=== PATIENT | female | born 1945 | race Caucasian/White ===

== ENCOUNTER → 2017-08-17 | Outpatient (CLI) | payer MEDICARE ==
[~2017-08-17] MED LIST: ASPI81CH PO; CENTRUM SILVER1 EAC3 PO; FISH1000 PO; Fibercon625 MG PO; LISI5 PO; UBID10 PO
[2017-08-19 13:21] LABS: HPV Genotype 16 Not Detected (NOTDET); HPV Genotype 18 Not Detected (NOTDET)
[2017-08-24 13:37] LABS: HPV High Risk Other Not Detected (NOTDET)
== END | disposition home or self-care (01) ==
LOC: LAB SHORT 16:43 → LAB 16:43
PROVIDERS: Obstetrics & Gynecology Gynecology
DX: Z12.72 Encounter for screening for malignant neoplasm of vagina (principal)
CPT/HCPCS: 87624; G0123

== ENCOUNTER 2020-07-16 15:58 | Emergency (ER) | payer MEDICARE ==
[~2020-07-16] VITALS: Ht 172.7 cm; Wt 66.2 kg
[~2020-07-16 15:58] MED LIST changes: -CENTRUM SILVER1 EAC3 PO; +Co Q-10300 MG PO; +ELIQUIS2.5 MG; +ELIQUIS5 M2; +Hair, Skin & N1 EACH PO; -LISI5 PO; +Prinivil10 MG PO; -UBID10 PO
[2020-07-16] MEDS ORDERED: POTCHL20ER PO (16:42)
[2020-07-16] MEDS ORDERED: FURO40 PO (16:42)
[2020-07-16] MEDS ORDERED: METO50 PO (16:43)
[2020-07-16] MEDS ORDERED: GABA100 PO (16:43)
[2020-07-16 16:50] LABS: BASOPHILS ABSOLUTE AUTO 0.04 K/mm3 (0.00-0.23); BASOPHILS PERCENT AUTO 1 % (0-2); EOSINOPHILS PERCENT AUTO 2 % (0-6); Hematocrit 38.3 % (33.0-51.0); Hemoglobin 12.9 g/dL (11.5-16.0); IMMATURE GRAN ABSOLUTE AUTO 0.01 K/mm3 (0.00-0.10); IMMATURE GRAN PERCENT AUTO 0 % (0-1); LYMPHOCYTES ABSOLUTE AUTO 1.74 K/mm3 (0.84-5.20); LYMPHOCYTES PERCENT AUTO 27 % (21-46); MONOCYTES ABSOLUTE AUTO 0.72 K/mm3 (0.16-1.47); MONOCYTES PERCENT AUTO 11 % (4-13); Mean Corpuscular HGB 31.9 pg (26.0-34.0); Mean Corpuscular HGB Conc 33.7 g/dL (31.5-36.5); Mean Corpuscular Volume 95 fL (80-100); Mean Platelet Volume 10.5 fL (9.1-12.4); NEUTROPHILS ABSOLUTE AUTO 3.81 K/mm3 (1.96-9.15); NEUTROPHILS PERCENT AUTO 59 % (41-73); Platelet Count 182 K/mm3 (150-400); RDW Coefficient Variation 13.8 % (11.7-14.2); RDW Standard Deviation 47.8 fL (35.1-46.3); Red Blood Cell Count 4.04 M/mm3 (3.80-5.20); White Blood Cell Count 6.42 K/mm3 (4.00-11.30)
[2020-07-16 17:14] LABS: Alanine Aminotransfer (ALT/SGP 51 U/L (12-78); Albumin, Blood 4.1 g/dL (3.4-5.0); Albumin/Globulin Ratio 1.5 (0.8-1.8); Alk Phos 112 U/L (50-136); Anion Gap 8 mmol/L (6-16); Aspartate Aminotrans (AST/SGOT 54 U/L (12-37); Blood Urea Nitrogen 39 mg/dL (8-24); Bun/Creatinine Ratio 43.9 (12.0-20.0); CO2, Blood 24 mmol/L (21-32); Calcium, Blood 9.2 mg/dL (8.5-10.1); Chloride, Blood 103 mmol/L (98-108); Creatinine, Blood 0.89 mg/dL (0.40-1.00); Globulin, Blood 2.7 g/dL (2.2-4.0); Glomerular Filtration Rate >60 (60-); Glucose, Blood 100 mg/dL (70-99); Potassium, Blood 4.4 mmol/L (3.5-5.5); Sodium, Blood 135 mmol/L (136-145); Total Protein, Blood 6.8 g/dL (6.4-8.2)
[2020-07-16] MEDS ORDERED: DABI150C PO (17:46)
[2020-07-16] MEDS ORDERED: VITAMIN D325 MC3 PO (18:02)
[2020-07-16] MEDS ORDERED: ASCO500 PO (18:02)
[2020-07-16] MEDS ORDERED: PRESERVISION A1 EAC1 PO (18:02)
[2020-07-16] MEDS ORDERED: red yeast rice PO (18:03)
== END 2020-07-16 19:06 | disposition home or self-care (01) ==
LOC: ER 15:58
PROVIDERS: Physician Assistant
DX: I50.9 Heart failure, unspecified (principal); I48.91 Unspecified atrial fibrillation; Z88.6 Allergy status to analgesic agent; Z79.899 Other long term (current) drug therapy; Z79.82 Long term (current) use of aspirin
CPT/HCPCS: 36415; 80053; 83880; 84484; 85025; 93005; 93010; 99285-25

== ENCOUNTER 2022-04-05 07:34 | Emergency (ER) | payer MEDICARE ==
[~2022-04-05] VITALS: Ht 172.7 cm; Wt 61.2 kg
[~2022-04-05 07:34] MED LIST changes: +ASCO500 PO; +DABI150C PO; +FURO40 PO; +GABA100 PO; +METO50 PO; +POTCHL20ER PO; +PRESERVISION A1 EAC1 PO; +VITAMIN D325 MC3 PO; +red yeast rice PO
[2022-04-05 08:22] LABS: BASOPHILS ABSOLUTE AUTO 0.08 K/mm3 (0.00-0.23); BASOPHILS PERCENT AUTO 1 % (0-2); EOSINOPHILS ABSOLUTE AUTO 0.09 K/mm3 (0.00-0.68); EOSINOPHILS PERCENT AUTO 1 % (0-6); Hematocrit 39.3 % (33.0-51.0); Hemoglobin 12.9 g/dL (11.5-16.0); IMMATURE GRAN ABSOLUTE AUTO 0.02 K/mm3 (0.00-0.10); IMMATURE GRAN PERCENT AUTO 0 % (0-1); LYMPHOCYTES ABSOLUTE AUTO 1.08 K/mm3 (0.84-5.20); LYMPHOCYTES PERCENT AUTO 16 % (21-46); MONOCYTES ABSOLUTE AUTO 0.74 K/mm3 (0.16-1.47); MONOCYTES PERCENT AUTO 11 % (4-13); Mean Corpuscular HGB 30.3 pg (26.0-34.0); Mean Corpuscular HGB Conc 32.8 g/dL (31.5-36.5); Mean Corpuscular Volume 92 fL (80-100); Mean Platelet Volume 9.9 fL (9.1-12.4); NEUTROPHILS ABSOLUTE AUTO 4.58 K/mm3 (1.96-9.15); NEUTROPHILS PERCENT AUTO 70 % (41-73); Platelet Count 196 K/mm3 (150-400); RDW Coefficient Variation 15.7 % (11.7-14.2); RDW Standard Deviation 52.5 fL (35.1-46.3); Red Blood Cell Count 4.26 M/mm3 (3.80-5.20); White Blood Cell Count 6.59 K/mm3 (4.00-11.30)
[2022-04-05] MEDS ORDERED: ELIQUIS5 M3 PO (08:30)
[2022-04-05] MEDS ORDERED: NEURONTIN300 MG PO (08:31)
[2022-04-05] MEDS ORDERED: TORSE20 (08:57)
[2022-04-05] MEDS ORDERED: NEURONTIN300 MG (08:58)
[2022-04-05] MEDS ORDERED: POTCHL20ER (08:58)
[2022-04-05 09:08] LABS: Albumin, Blood 3.5 g/dL (3.4-5.0); Albumin/Globulin Ratio 1.1 (0.8-1.8); Bilirubin, Total 1.6 mg/dL (0.1-1.0); Bun/Creatinine Ratio 41.5 (12.0-20.0); Calcium, Blood 8.2 mg/dL (8.5-10.1); Creatinine, Blood 0.87 mg/dL (0.40-1.00); Globulin, Blood 3.2 g/dL (2.2-4.0); Total Protein, Blood 6.7 g/dL (6.4-8.2)
[2022-04-05 10:56] LABS: Bun/Creatinine Ratio 42.5 (12.0-20.0); Calcium, Blood 8.3 mg/dL (8.5-10.1); Creatinine, Blood 0.85 mg/dL (0.40-1.00); Potassium, Blood 5.4 mmol/L (3.5-5.5)
== END 2022-04-05 11:12 | disposition home or self-care (01) ==
LOC: ER 07:34
PROVIDERS: Emergency Medicine
DX: I50.9 Heart failure, unspecified (principal); I48.91 Unspecified atrial fibrillation; E87.5 Hyperkalemia; Z88.6 Allergy status to analgesic agent; Z79.899 Other long term (current) drug therapy
CPT/HCPCS: 36415; 71045; 80048; 80053; 83880; 84484; 85025; J1815; J1940

== ENCOUNTER → 2022-06-28 | Outpatient (CLI) | payer MEDICARE ==
[~2022-06-28] MED LIST changes: +ELIQUIS5 M3 PO; +NEURONTIN300 MG; +NEURONTIN300 MG PO; +POTCHL20ER; +TORSE20
[2022-06-28 10:43] LABS: BASOPHILS ABSOLUTE AUTO 0.04 K/mm3 (0.00-0.23); BASOPHILS PERCENT AUTO 1 % (0-2); EOSINOPHILS ABSOLUTE AUTO 0.06 K/mm3 (0.00-0.68); EOSINOPHILS PERCENT AUTO 1 % (0-6); Hematocrit 36.2 % (33.0-51.0); IMMATURE GRAN ABSOLUTE AUTO 0.03 K/mm3 (0.00-0.10); IMMATURE GRAN PERCENT AUTO 1 % (0-1); LYMPHOCYTES ABSOLUTE AUTO 0.76 K/mm3 (0.84-5.20); LYMPHOCYTES PERCENT AUTO 13 % (21-46); MONOCYTES ABSOLUTE AUTO 0.63 K/mm3 (0.16-1.47); MONOCYTES PERCENT AUTO 11 % (4-13); Mean Corpuscular HGB 30.2 pg (26.0-34.0); Mean Corpuscular HGB Conc 33.1 g/dL (31.5-36.5); Mean Corpuscular Volume 91 fL (80-100); Mean Platelet Volume 9.8 fL (9.1-12.4); NEUTROPHILS ABSOLUTE AUTO 4.26 K/mm3 (1.96-9.15); NEUTROPHILS PERCENT AUTO 74 % (41-73); Platelet Count 168 K/mm3 (150-400); RDW Coefficient Variation 15.8 % (11.7-14.2); Red Blood Cell Count 3.98 M/mm3 (3.80-5.20); White Blood Cell Count 5.78 K/mm3 (4.00-11.30)
== END | disposition home or self-care (01) ==
LOC: LAB 10:37 → LAB SHORT 10:37
PROVIDERS: Physician Assistant
DX: K92.1 Melena (principal)
CPT/HCPCS: 85025

== ENCOUNTER → 2022-07-05 | Outpatient (CLI) | payer MEDICARE ==
[~2022-07-05] MED LIST changes: +Ultram50 MG PO
[2022-07-05 09:14] LABS: BASOPHILS ABSOLUTE AUTO 0.04 K/mm3 (0.00-0.23); BASOPHILS PERCENT AUTO 1 % (0-2); EOSINOPHILS ABSOLUTE AUTO 0.03 K/mm3 (0.00-0.68); EOSINOPHILS PERCENT AUTO 1 % (0-6); Hematocrit 34.5 % (33.0-51.0); Hemoglobin 11.3 g/dL (11.5-16.0); IMMATURE GRAN ABSOLUTE AUTO 0.02 K/mm3 (0.00-0.10); IMMATURE GRAN PERCENT AUTO 0 % (0-1); LYMPHOCYTES ABSOLUTE AUTO 0.62 K/mm3 (0.84-5.20); LYMPHOCYTES PERCENT AUTO 11 % (21-46); MONOCYTES ABSOLUTE AUTO 0.63 K/mm3 (0.16-1.47); MONOCYTES PERCENT AUTO 12 % (4-13); Mean Corpuscular HGB 29.5 pg (26.0-34.0); Mean Corpuscular HGB Conc 32.8 g/dL (31.5-36.5); Mean Corpuscular Volume 90 fL (80-100); Mean Platelet Volume 9.7 fL (9.1-12.4); NEUTROPHILS ABSOLUTE AUTO 4.11 K/mm3 (1.96-9.15); NEUTROPHILS PERCENT AUTO 75 % (41-73); Platelet Count 202 K/mm3 (150-400); RDW Coefficient Variation 16.2 % (11.7-14.2); RDW Standard Deviation 52.6 fL (35.1-46.3); Red Blood Cell Count 3.83 M/mm3 (3.80-5.20); White Blood Cell Count 5.45 K/mm3 (4.00-11.30)
[2022-07-05 09:26] LABS: Albumin, Blood 3.4 g/dL (3.4-5.0); Bilirubin, Total 1.5 mg/dL (0.1-1.0); Calcium, Blood 8.9 mg/dL (8.5-10.1); Globulin, Blood 3.3 g/dL (2.2-4.0); Potassium, Blood 4.7 mmol/L (3.5-5.5); Total Protein, Blood 6.7 g/dL (6.4-8.2)
[2022-07-05 09:32] LABS: Bun/Creatinine Ratio 44.9 (12.0-20.0); Creatinine, Blood 1.07 mg/dL (0.40-1.00)
== END | disposition home or self-care (01) ==
LOC: LAB 09:06 → LAB SHORT 09:06
PROVIDERS: Physician Assistant Medical
DX: I50.9 Heart failure, unspecified (principal)
CPT/HCPCS: 80053; 83880; 85025

== ENCOUNTER 2022-07-08 00:05 | Emergency (ER) | payer MEDICARE ==
[~2022-07-08] VITALS: Ht 170.2 cm; Wt 68.0 kg
[~2022-07-08 00:05] MED LIST changes: -Ultram50 MG PO
[2022-07-08] MEDS ORDERED: Ultram50 MG PO (00:28)
== END 2022-07-08 01:09 | disposition home or self-care (01) ==
LOC: ER 00:05
DX: S39.012A Strain of muscle, fascia and tendon of lower back, initial encounter (principal); M54.17 Radiculopathy, lumbosacral region; W18.30XA Fall on same level, unspecified, initial encounter; Z88.8 Allergy status to other drugs, medicaments and biological substances; Z79.899 Other long term (current) drug therapy; I48.91 Unspecified atrial fibrillation; I50.9 Heart failure, unspecified
CPT/HCPCS: 99284; A9270

== ENCOUNTER 2022-07-13 16:51 | Inpatient (IN) | payer MEDICARE ==
[~2022-07-13] VITALS: Ht 152.4 cm; Wt 71.5 kg
[~2022-07-13 16:51] MED LIST changes: +Ultram50 MG PO
[2022-07-13] MEDS ORDERED: ELIQUIS5 M2 PO (18:21)
[2022-07-13] MEDS ORDERED: Zestril30 MG PO (18:22)
[2022-07-13] MEDS ORDERED: METO100 PO (18:23)
[2022-07-13] MEDS ORDERED: K-Dur20 MEQ PO (18:24)
[2022-07-13] MEDS ORDERED: TORS10 PO (18:25)
[2022-07-13 18:30] LABS: BASOPHILS ABSOLUTE AUTO 0.03 K/mm3 (0.00-0.23); BASOPHILS PERCENT AUTO 1 % (0-2); EOSINOPHILS ABSOLUTE AUTO 0.12 K/mm3 (0.00-0.68); EOSINOPHILS PERCENT AUTO 2 % (0-6); Hematocrit 37.3 % (33.0-51.0); IMMATURE GRAN ABSOLUTE AUTO 0.02 K/mm3 (0.00-0.10); IMMATURE GRAN PERCENT AUTO 0 % (0-1); LYMPHOCYTES PERCENT AUTO 14 % (21-46); MONOCYTES ABSOLUTE AUTO 0.77 K/mm3 (0.16-1.47); MONOCYTES PERCENT AUTO 12 % (4-13); Mean Corpuscular HGB 29.3 pg (26.0-34.0); Mean Corpuscular HGB Conc 32.2 g/dL (31.5-36.5); Mean Corpuscular Volume 91 fL (80-100); Mean Platelet Volume 9.5 fL (9.1-12.4); NEUTROPHILS ABSOLUTE AUTO 4.61 K/mm3 (1.96-9.15); NEUTROPHILS PERCENT AUTO 71 % (41-73); NRBC ABSOLUTE 0.02 K/mm3 (0.00-0.02); NRBC Auto 0.3 /100 WBC (0.0-0.2); Platelet Count 298 K/mm3 (150-400); RDW Coefficient Variation 17.7 % (11.7-14.2); RDW Standard Deviation 57.6 fL (35.1-46.3); Red Blood Cell Count 4.09 M/mm3 (3.80-5.20); White Blood Cell Count 6.45 K/mm3 (4.00-11.30)
[2022-07-13 18:39] LABS: Albumin, Blood 3.1 g/dL (3.4-5.0); Bilirubin, Total 1.5 mg/dL (0.1-1.0); Bun/Creatinine Ratio 41.6 (12.0-20.0); Creatinine, Blood 0.91 mg/dL (0.40-1.00); Potassium, Blood 4.9 mmol/L (3.5-5.5); Total Protein, Blood 6.1 g/dL (6.4-8.2)
[2022-07-13] MEDS ORDERED: HYDROCODONE-AC1 EA19 PO (20:23)
[2022-07-13 23:42] LABS: Source, Urine Foley catheter
[2022-07-13 23:56] LABS: Bilirubin, Urine Neg (Neg); Blood, Urine Neg (Neg); Glucose Qualitative, Urine Neg (Neg); Ketones, Urine Neg (Neg); Leukocyte Esterase, Urine Neg (Neg); Nitrite, Urine Neg (Neg); Protein, Urine 2+ (Neg); Urobilinogen, Urine 2+ (Normal)
[2022-07-14 00:45] LABS: Color, Urine Yellow (P-Yellow)
[2022-07-14 00:46] LABS: Appearance, Urine Clear (Clear)
[2022-07-14 00:47] LABS: Bacteria Not Seen /hpf; Red Blood Cells, Urine 0-2 /hpf (0-2); Squamous Epithelial Cells Not Seen /hpf (Few); White Blood Cells, Urine 0-2 /hpf (0-5)
--- NOTE | 2022-07-14 04:28 | NUR ---
SHIFT SUMMARY 76 YR F WELCOMED TO THIS UNIT A DIRECT ADMIT ON 07/13/22 WITH A FX TO THE R PELVIS AND RIGHT HAND. FULL CODE. NO ACUTE CHANGES THIS SHIFT. GRACE WAS PLACED PT IS IMMOBILE.SHE HAD A CT SCAN OF RIGHT PELVIS AND X-RAY OF RIGHT HAND. ORDER FOR SPLINT OF RIGHT HAND BUT PT STATED IT FELT MUCH BETTER AND SHE DID NOT FEEL A SPLINT WAS NECESSARY. SHE C/O PAIN AT A 7 IN HER RIGHT PELVIS BUT ONLY HAD PAIN MEDS ONCE, EVEN THOUGH THEY WERE OFFERED. SHE IS A VERY PLEASANT WOMAN AND IS ABLE TO MAKE HER NEEDS KNOWN. FAMILY AT BEDSIDE UPON ARRIVAL TO UNIT BUT LEFT SHORTLY THEREAFTER.
--- NOTE | 2022-07-14 17:07 | NUR ---
SHIFT SUMMARY- PT IS A/O, PLESANT AND COOPERATIVE. SHE IS EATING AND DRINKING WELL. SHE IS RECIEVING PAIN MEDICATION NEEDED. SHE HAD ONE EPISODE OF ELEVATED DURING BED CHANGE. RECOMENDED TO THE PT THAT SHE TAKE A DOSE OF PAIN MEDCIATION PRIOR TO MOVMENT. FAMILY AT THE BEDSIDE DURING THIS SHIFT. CONSULT CALLED TO DR. PEREA LEFT MESSAGE, CALLED BACK AND SPOKE WITH PROVIDER. LESLY IS PATIENT AND DRAINING. HER BED IS IN THE LOW POSITION AND CALL LIGHT IS WITHIN REACH.
[2022-07-15 04:57] LABS: BASOPHILS ABSOLUTE AUTO 0.05 K/mm3 (0.00-0.23); BASOPHILS PERCENT AUTO 1 % (0-2); EOSINOPHILS ABSOLUTE AUTO 0.09 K/mm3 (0.00-0.68); EOSINOPHILS PERCENT AUTO 2 % (0-6); Hematocrit 36.5 % (33.0-51.0); Hemoglobin 11.8 g/dL (11.5-16.0); IMMATURE GRAN ABSOLUTE AUTO 0.02 K/mm3 (0.00-0.10); IMMATURE GRAN PERCENT AUTO 0 % (0-1); LYMPHOCYTES ABSOLUTE AUTO 0.64 K/mm3 (0.84-5.20); LYMPHOCYTES PERCENT AUTO 13 % (21-46); MONOCYTES ABSOLUTE AUTO 0.66 K/mm3 (0.16-1.47); MONOCYTES PERCENT AUTO 14 % (4-13); Mean Corpuscular HGB 29.3 pg (26.0-34.0); Mean Corpuscular HGB Conc 32.3 g/dL (31.5-36.5); Mean Corpuscular Volume 91 fL (80-100); Mean Platelet Volume 9.3 fL (9.1-12.4); NEUTROPHILS ABSOLUTE AUTO 3.43 K/mm3 (1.96-9.15); NEUTROPHILS PERCENT AUTO 70 % (41-73); Platelet Count 267 K/mm3 (150-400); RDW Coefficient Variation 17.6 % (11.7-14.2); RDW Standard Deviation 57.6 fL (35.1-46.3); Red Blood Cell Count 4.03 M/mm3 (3.80-5.20); White Blood Cell Count 4.89 K/mm3 (4.00-11.30)
--- NOTE | 2022-07-15 05:22 | NUR ---
SHIFT SUMMARY 76 YR F ADMITTED ON 07/13/22 FOR PAIN MANAGEMENT SFTER A PELVIC FX X [address] PEREA (ORTHOPEDIC SURGEON) WAS IN TO CONSULT WITH PT THIS EVENING. HE IS NOT RECOMMENDING SURGERY BUT RATHER PT AND POSSIBLE HOME PT WELL. PT IS IN AGREEANCE WITH THIS. PT WOKE UP IN THE MIDDLE OF THE NIGHT VERY CONFUSED AND DI NOT KNOW WHERE SHE WAS OR WHY SHE WAS HERE. SHE PULLED OUT HER IV AND PULLED HERE TELE OFF TWICE. SHE STATED THAT SHE WAS DREAMING AND DIDN'T KNOW WHY THESE THINGS WERE THERE SO SHE REMOVED THEM. THIS NURSE STAYED IN THE ROOM WITH THE PT FOR QUITE SOME TIME TRYING TO REORIENT AND REASSURE HER. SHE WAS WORRIED THAT SHE HAD MADE ME MAD AND AT ONE POINT ASKED ME "ARE WE GOING TO DO THIS AGAIN, ELLA? ARE YOU WITH THE YARSANISM MORAV[facility] OR ARE YOU AGAINST IT". IT WAS RANDOM AND MADE NO SENSE. OUT OF WORRY FOR DEHYDRATION THIS NURSE ENCOURAGED PT TO KEEP TAKING DRINKS OF WATER AND BETWEEN THAT AND CONSTANT ASKING OF A&O QUESTIONS, THE PT FINALLY CAME AROUND AND WAS ACTING LIKE HERSELF AGAIN. SHE ALLOWED A NEW IV TO BE STARTED AND ALLOWED TELE TO BE PUT BACK ON. BY 0500 SHE APPEARED TO BE A&O AGAIN. SHE WAS GIVEN ONLY 1/2 THE AMOUNT OF DILAUDID FOR PAIN AND THE LIGHT WAS LEFT ON AND A FAMILIAR TV SHOW WAS PUT ON TO MAKE HER FEEL MORE COMFORTABLE IN THIS STRANGE ENVIRONMENT. SHE IS DOING AND FEELING MUCH BETTER NOW.
[2022-07-15 16:44] LABS: Bun/Creatinine Ratio 41.2 (12.0-20.0); Calcium, Blood 8.7 mg/dL (8.5-10.1); Creatinine, Blood 0.75 mg/dL (0.40-1.00); Potassium, Blood 5.3 mmol/L (3.5-5.5)
--- NOTE | 2022-07-15 18:18 | NUR ---
SHIFT SUMMARY- PT IS A/O, PLESANT AND COOPERATIVE. HAD SOME INTERMITENT CONFUSION. SHE IS RECIEVING PAIN MEDICATION NEEDED. SHE WAS MEASURED FOR A BRACE THIS SHIFT. HER GRACE IS PATIENT AND DRAINING. HER BED IS IN THE LOW POSITON AND CALL LIGHT IS WITHIN REACH.
--- NOTE | 2022-07-16 04:37 | NUR ---
SHIFT SUMMARY 76 YR F ADMITTED ON 07/13/22 FOR FX OF RIGHT PELVIS AND PAIN MANAGEMENT. FULL CODE. PT IS STILL EXPERIENCING SEVERE CONFUSION AT TIMES IN NOT KNOWING WHERE SHE IS OR WHY SHE IS HERE. ONCE SHE REALIZES IT SHE GETS UPSET WITH HERSELF FOR BEING CONFUSED. WHEN SHE IS UPSET OR TRIES TO MOVE HER HEART RATE JUMPS UP TO THE 150'S. AT ONE POINT THIS SHIFT AT APPROX 0330 SHE MANAGED TO GET HERSELF TURNED COMPLETELY AROUND IN THE BED WITH HER HEAD AT THE BOTTOM OF THE BED. SHE WAS MEDICATED FOR PAIN BEFORE BEING REPOSITIONED, AND SHE TOLERATES PAIN WELL. WHEN ASKED HOW SHE GOT TURNED AROUND IN THE BED SHE STATED THAT SHE WAS LOOKING FOR HER . RACHAEL AREA WAS NOTED TO BE RED AND BARRIER CREAM WAS APPLIED.
[2022-07-16 05:32] LABS: BASOPHILS ABSOLUTE AUTO 0.05 K/mm3 (0.00-0.23); BASOPHILS PERCENT AUTO 1 % (0-2); EOSINOPHILS ABSOLUTE AUTO 0.04 K/mm3 (0.00-0.68); EOSINOPHILS PERCENT AUTO 1 % (0-6); Hematocrit 39.1 % (33.0-51.0); Hemoglobin 12.4 g/dL (11.5-16.0); IMMATURE GRAN ABSOLUTE AUTO 0.04 K/mm3 (0.00-0.10); IMMATURE GRAN PERCENT AUTO 1 % (0-1); LYMPHOCYTES ABSOLUTE AUTO 0.52 K/mm3 (0.84-5.20); LYMPHOCYTES PERCENT AUTO 8 % (21-46); MONOCYTES ABSOLUTE AUTO 0.66 K/mm3 (0.16-1.47); MONOCYTES PERCENT AUTO 10 % (4-13); Mean Corpuscular HGB 29.5 pg (26.0-34.0); Mean Corpuscular HGB Conc 31.7 g/dL (31.5-36.5); Mean Corpuscular Volume 93 fL (80-100); Mean Platelet Volume 9.6 fL (9.1-12.4); NEUTROPHILS ABSOLUTE AUTO 5.38 K/mm3 (1.96-9.15); NEUTROPHILS PERCENT AUTO 80 % (41-73); Platelet Count 262 K/mm3 (150-400); RDW Coefficient Variation 17.7 % (11.7-14.2); RDW Standard Deviation 59.4 fL (35.1-46.3); White Blood Cell Count 6.69 K/mm3 (4.00-11.30)
[2022-07-16 06:08] LABS: Bun/Creatinine Ratio 37.2 (12.0-20.0); Calcium, Blood 9.2 mg/dL (8.5-10.1); Creatinine, Blood 0.78 mg/dL (0.40-1.00)
[2022-07-16] MEDS ORDERED: GABA100 PO (07:44)
[2022-07-16] MEDS ORDERED: GABA300 PO ×2 (07:45→09:40)
--- NOTE | 2022-07-16 09:42 | NUR ---
GABAPENTIN Patient reports taking gabapentin at home for spasms in legs of which she is having this morning. Per V.O. Dr. Sutton, give 900mg PO gabapentin tid. EMAR updated.
--- NOTE | 2022-07-16 17:40 | NUR ---
Shift Summary A/Ox3, medicated for pain x 2 this shift with good effect. Brace and spica extension not arrived yet from [facility]. Minimal appetite, poor fluid intake. Urine is concentrated. Encouraged more fluids and also advised family to encourage fluid as they sit with patient in room. Reposition as needed for comfort. When pain is high, patient develops nonsustained tachycardia to 150's but returns to baseline in low 100's once pain is adequately controlled. Patient refusing spica splint to R thumb. Overall good day.
[2022-07-17 05:35] LABS: BASOPHILS ABSOLUTE AUTO 0.06 K/mm3 (0.00-0.23); BASOPHILS PERCENT AUTO 1 % (0-2); EOSINOPHILS ABSOLUTE AUTO 0.08 K/mm3 (0.00-0.68); EOSINOPHILS PERCENT AUTO 1 % (0-6); Hematocrit 38.3 % (33.0-51.0); Hemoglobin 12.2 g/dL (11.5-16.0); IMMATURE GRAN ABSOLUTE AUTO 0.01 K/mm3 (0.00-0.10); IMMATURE GRAN PERCENT AUTO 0 % (0-1); LYMPHOCYTES ABSOLUTE AUTO 0.87 K/mm3 (0.84-5.20); LYMPHOCYTES PERCENT AUTO 15 % (21-46); MONOCYTES ABSOLUTE AUTO 0.73 K/mm3 (0.16-1.47); MONOCYTES PERCENT AUTO 13 % (4-13); Mean Corpuscular HGB 29.7 pg (26.0-34.0); Mean Corpuscular HGB Conc 31.9 g/dL (31.5-36.5); Mean Corpuscular Volume 93 fL (80-100); Mean Platelet Volume 9.6 fL (9.1-12.4); NEUTROPHILS ABSOLUTE AUTO 3.99 K/mm3 (1.96-9.15); NEUTROPHILS PERCENT AUTO 70 % (41-73); Platelet Count 257 K/mm3 (150-400); RDW Coefficient Variation 17.6 % (11.7-14.2); RDW Standard Deviation 59.2 fL (35.1-46.3); Red Blood Cell Count 4.11 M/mm3 (3.80-5.20); White Blood Cell Count 5.74 K/mm3 (4.00-11.30)
[2022-07-17 06:32] LABS: Calcium, Blood 8.8 mg/dL (8.5-10.1); Potassium, Blood 5.2 mmol/L (3.5-5.5)
--- NOTE | 2022-07-17 16:36 | NUR ---
SHIFT SUMMARY PATIENT IS ALERT AND ORIENTED X3 WITH OCCASIONAL CONFUSION. PATIENT HAS HAD NO ACUTE EVENTS THIS SHIFT. VITAL SIGNS REVIEWED. PATIENT HAS A BROKEN PELVIS AND HAS REQUIRED PAIN MEDS TWICE THIS MORNING WITH GOOD SUCCESS. PATIENT IS DOCUMENTED TO DESAT WHILE SLEEPING. PATIENT IS ON CONT PULSEOX. FAMILY HAS BEEN WITH PATIENT ALL SHIFT. PATIENT HAS BEEN PLEASENT AND COOPERATIVE WITH CARE THIS SHIFT. PATIENT IS AWAITING A BRACE TO WORK WITH PT/OT AND TO GO TO SNF FOR REHAB. PATIENT HAS NOT COMPLAINED OF SOB, NAUSEA OR VOMITTING THIS SHIFT. BED IN LOCKED AND LOWEST POSITION. CALL LIGHT IN PLACE. WILL MONITOR UNTIL SHIFT CHANGE.
--- NOTE | 2022-07-18 05:02 | NUR ---
SHIFT SUMMARY NO ACUTE CHANGES THIS SHIFT. PATIENT DID HAVE EPISODE OF RLS, RELEIVED WITH PAIN MEDICATIONI PER EMAR THAT WAS THE BEST OPTION AVAILABLE. PATIENT ABLE TO REST COMFORTABLY IN BED ONCE RELEIVED. NO EVENTS ON TELE. GRACE REMAINS IN [place]CE DRAINING Y ELLOW URINE TO GRAVITY. ABLE TO MAKE NEEDS KNOWN, CALL LIGHT IN REACH. WILL REPORT TO ONCOMING RN AT 0700.
[2022-07-18 05:15] LABS: BASOPHILS ABSOLUTE AUTO 0.05 K/mm3 (0.00-0.23); BASOPHILS PERCENT AUTO 1 % (0-2); EOSINOPHILS PERCENT AUTO 2 % (0-6); Hematocrit 39.8 % (33.0-51.0); Hemoglobin 12.6 g/dL (11.5-16.0); IMMATURE GRAN ABSOLUTE AUTO 0.03 K/mm3 (0.00-0.10); IMMATURE GRAN PERCENT AUTO 1 % (0-1); LYMPHOCYTES ABSOLUTE AUTO 0.67 K/mm3 (0.84-5.20); LYMPHOCYTES PERCENT AUTO 10 % (21-46); MONOCYTES ABSOLUTE AUTO 0.62 K/mm3 (0.16-1.47); MONOCYTES PERCENT AUTO 9 % (4-13); Mean Corpuscular HGB 29.2 pg (26.0-34.0); Mean Corpuscular HGB Conc 31.7 g/dL (31.5-36.5); Mean Corpuscular Volume 92 fL (80-100); Mean Platelet Volume 9.4 fL (9.1-12.4); NEUTROPHILS PERCENT AUTO 78 % (41-73); Platelet Count 237 K/mm3 (150-400); RDW Coefficient Variation 17.4 % (11.7-14.2); RDW Standard Deviation 58.5 fL (35.1-46.3); Red Blood Cell Count 4.31 M/mm3 (3.80-5.20); White Blood Cell Count 6.57 K/mm3 (4.00-11.30)
[2022-07-18 05:49] LABS: Albumin, Blood 3.2 g/dL (3.4-5.0); Albumin/Globulin Ratio 1.1 (0.8-1.8); Bun/Creatinine Ratio 37.3 (12.0-20.0); Calcium, Blood 9.2 mg/dL (8.5-10.1); Creatinine, Blood 1.02 mg/dL (0.40-1.00); Globulin, Blood 2.9 g/dL (2.2-4.0); Potassium, Blood 4.7 mmol/L (3.5-5.5); Total Protein, Blood 6.1 g/dL (6.4-8.2)
--- NOTE | 2022-07-18 16:35 | NUR ---
SHIFT SUMMARY PATIENT IS ALERT AND ORIENTED. PATIENT HAS HAD NO ACUTE EVENTS THIS SHIFT. VITAL SIGNS REVIEWED. PATIENTS PAIN HAS BEEN BETTER CONTROLLED TODAY VS PRIOR SHIFTS. PATIENT HAS NOT COMPLAINED OF SOB, NAUSEA, OR VOMITTING. PATIENT IS STILL AWAITING A BRACE TO DISCHARGE TO SNF. PATIENT HAS BEEN PLEASENT AND COOPERATIVE WITH CARE. BED IN LOCKED AND LOWEST POSITION. CALL LIGHT IN PLACE. WILL MONITOR UNTIL SHIFT CHANGE.
--- NOTE | 2022-07-19 04:19 | NUR ---
COMPUTER CONSOLE OPERATOR SUMMARY NO ACUTE EVENTS THROUGHOUT THE NIGHT. A&OX4 /C INTERMITTENT CONFUSION. PATIENT EFFECTIVELY COMMUNICATES NEEDS. VSS. RR EVEN AND UNLABORED ON RA. PAIN ASSESSED AND MEDICATED PER EMAR. GRACE CATHETER DRAINING TO GRAVITY. CALL LIGHT WITHIN REACH. BED LOW AND LOCKED. THIS RN WILL CONTINUE TO MONITOR.
[2022-07-19 05:43] LABS: BASOPHILS ABSOLUTE AUTO 0.04 K/mm3 (0.00-0.23); BASOPHILS PERCENT AUTO 1 % (0-2); EOSINOPHILS ABSOLUTE AUTO 0.09 K/mm3 (0.00-0.68); EOSINOPHILS PERCENT AUTO 2 % (0-6); Hematocrit 42.9 % (33.0-51.0); Hemoglobin 13.8 g/dL (11.5-16.0); IMMATURE GRAN ABSOLUTE AUTO 0.02 K/mm3 (0.00-0.10); IMMATURE GRAN PERCENT AUTO 0 % (0-1); LYMPHOCYTES ABSOLUTE AUTO 0.75 K/mm3 (0.84-5.20); LYMPHOCYTES PERCENT AUTO 13 % (21-46); MONOCYTES ABSOLUTE AUTO 0.59 K/mm3 (0.16-1.47); MONOCYTES PERCENT AUTO 10 % (4-13); Mean Corpuscular HGB 29.6 pg (26.0-34.0); Mean Corpuscular HGB Conc 32.2 g/dL (31.5-36.5); Mean Corpuscular Volume 92 fL (80-100); Mean Platelet Volume 9.7 fL (9.1-12.4); NEUTROPHILS ABSOLUTE AUTO 4.48 K/mm3 (1.96-9.15); NEUTROPHILS PERCENT AUTO 75 % (41-73); Platelet Count 237 K/mm3 (150-400); RDW Coefficient Variation 17.4 % (11.7-14.2); RDW Standard Deviation 57.7 fL (35.1-46.3); Red Blood Cell Count 4.67 M/mm3 (3.80-5.20); White Blood Cell Count 5.97 K/mm3 (4.00-11.30)
[2022-07-19 06:05] LABS: Albumin, Blood 3.3 g/dL (3.4-5.0); Albumin/Globulin Ratio 1.1 (0.8-1.8); Bun/Creatinine Ratio 36.1 (12.0-20.0); Calcium, Blood 9.3 mg/dL (8.5-10.1); Creatinine, Blood 0.83 mg/dL (0.40-1.00); Globulin, Blood 2.9 g/dL (2.2-4.0); Potassium, Blood 4.6 mmol/L (3.5-5.5); Total Protein, Blood 6.2 g/dL (6.4-8.2)
--- NOTE | 2022-07-19 16:28 | NUR ---
SHIFT SUMMARY PATIENT IS ALERT AND ORIENTED. PATIENT STARTED SHIFT CONFUSED AND DISORIENTED. PATIENT HAS BEEN HAVING TROUBLE KEEPING PAIN MANAGED. PATIENT HAS HAD ADDITIONAL DOSE OF PAIN MEDICATION AND THE ADDED DOSAGE OF GABAPENTIN AND LIDOCAINE PATCH HAS PATIENT RESTING COMFORTABLY. PATIENT HAS HAD ANOTHER BM TODAY. PATIENT HAS NOT HAD ANY COMPLAINTS OF PAIN, NAUSEA, SOB OR VOMITTING. PATIENTS BRACE IS SUPPOSED TO ARRIVE TOMORROW. POSSIBLE DC TO SNF AFTER BRACE ARRIVES. BED IN LOCKED AND LOWEST POSITION. CALL LIGHT IN PLACE. WILL MONITOR UNTIL SHIFT CHANGE.
--- NOTE | 2022-07-20 04:14 | NUR ---
CASINO FLOOR PERSON SUMMARY NO ACUTE EVENTS THROUGHOUT THE NIGHT. A&OX4 /C INTERMITTENT CONFUSION NOTED. PATIENT EFFECTIVELY COMMUNICATES NEEDS. VSS. RR EVEN AND UNLABORED ON RA. PAIN ASSESSED AND MEDICATED PER EMAR. NO UNCONTROLLED PAIN WITNESSED AND/OR REPORTED THIS SHIFT. GRACE CATHETER DRAINING TO GRAVITY. BED LOW AND LOCKED. CALL LIGHT WITHIN REACH. THIS RN WILL CONTINUE TO MONITOR.
[2022-07-20 05:13] LABS: BASOPHILS ABSOLUTE AUTO 0.05 K/mm3 (0.00-0.23); BASOPHILS PERCENT AUTO 1 % (0-2); EOSINOPHILS ABSOLUTE AUTO 0.14 K/mm3 (0.00-0.68); EOSINOPHILS PERCENT AUTO 3 % (0-6); Hematocrit 41.3 % (33.0-51.0); Hemoglobin 13.3 g/dL (11.5-16.0); IMMATURE GRAN ABSOLUTE AUTO 0.01 K/mm3 (0.00-0.10); IMMATURE GRAN PERCENT AUTO 0 % (0-1); LYMPHOCYTES ABSOLUTE AUTO 1.02 K/mm3 (0.84-5.20); LYMPHOCYTES PERCENT AUTO 19 % (21-46); MONOCYTES ABSOLUTE AUTO 0.61 K/mm3 (0.16-1.47); MONOCYTES PERCENT AUTO 12 % (4-13); Mean Corpuscular HGB 29.2 pg (26.0-34.0); Mean Corpuscular HGB Conc 32.2 g/dL (31.5-36.5); Mean Corpuscular Volume 91 fL (80-100); Mean Platelet Volume 9.3 fL (9.1-12.4); NEUTROPHILS ABSOLUTE AUTO 3.46 K/mm3 (1.96-9.15); NEUTROPHILS PERCENT AUTO 66 % (41-73); Platelet Count 223 K/mm3 (150-400); RDW Coefficient Variation 17.4 % (11.7-14.2); RDW Standard Deviation 57.4 fL (35.1-46.3); Red Blood Cell Count 4.56 M/mm3 (3.80-5.20); White Blood Cell Count 5.29 K/mm3 (4.00-11.30)
[2022-07-20 05:57] LABS: Albumin, Blood 3.1 g/dL (3.4-5.0); Albumin/Globulin Ratio 1.1 (0.8-1.8); Bilirubin, Total 1.8 mg/dL (0.1-1.0); Bun/Creatinine Ratio 32.4 (12.0-20.0); Calcium, Blood 8.9 mg/dL (8.5-10.1); Creatinine, Blood 0.9 mg/dL (0.40-1.00); Globulin, Blood 2.9 g/dL (2.2-4.0); Potassium, Blood 4.9 mmol/L (3.5-5.5)
[2022-07-20] MEDS ORDERED: DOCU100 PO (16:09)
[2022-07-20] MEDS ORDERED: SENN187 PO (16:09)
[2022-07-20] MEDS ORDERED: TRAZ100 PO (16:10)
--- NOTE | 2022-07-20 16:18 | NUR ---
REPORT GIVEN TO NIKO AT [facility]. ALL QUESTIONS ANSWERED.
[2022-07-20 16:23] LABS: Influenza A, PCR NEGATIVE (NEGATIVE); Influenza B, PCR NEGATIVE (NEGATIVE); Resp Syncytial Virus, PCR NEGATIVE (NEGATIVE)
--- NOTE | 2022-07-20 16:48 | NUR ---
CLEANSED GRACE CATHETER PER HOSPITAL POLICY.
[2022-07-20 16:55] LABS: SARS-Cov-2 (COVID-19) PCR, MMC POSITIVE (NEGATIVE)
--- NOTE | 2022-07-20 18:25 | NUR ---
SHIFT SUMMARY- PT'S PAIN WELL CONTROLLED WITH PAIN MEDS. PT CALM ND COOPERATIVE ALTHOUGH DOES HAVE INTERMITTENT CONFUSION. PT DID ALSO COMPLAIN OF SOME HALLUCINATIONS THAT "STARTED WHEN I WAS ADMITTED BUT AREN'T DEBILITATING."
--- NOTE | 2022-07-21 04:06 | NUR ---
VOLCANOLOGIST SUMMARY NO ACUTE CHANGES THROUGHOUT THE NIGHT. A&OX4 /C INTERMITTENT CONFUSION. VSS. RR EVEN AND UNLABORED ON RA. PAIN ASSESSED AND MEDICATED PER EMAR. BED LOW AND LOCKED. CALL LIGHT WITHIN REACH. THIS RN WILL CONTINUE TO MONITOR.
[2022-07-21 08:53] LABS: SARS-Cov-2 (COVID-19) Antigen Negative (NEGATIVE)
--- NOTE | 2022-07-21 12:36 | NUR ---
1115 REPORT GIVEN TO [facility] NURSE. ALL QUESTIONS ANSWERED. PT LEFT IN STABLE CONDITION WITH TRANSPORT.
== END 2022-07-21 11:10 | DRG 551 ==
LOC: SURS 16:51 → MEDS 17:44 → ENPENDDIS 07-20 15:56 → MEDS 07-21 11:10
PROVIDERS: Family Medicine; ADMIT Family Medicine
DX: S32.19XA Other fracture of sacrum, initial encounter for closed fracture (principal); U07.1 COVID-19; S32.591A Other specified fracture of right pubis, initial encounter for closed fracture; I50.32 Chronic diastolic (congestive) heart failure; I48.91 Unspecified atrial fibrillation; I11.0 Hypertensive heart disease with heart failure; M54.50 Low back pain, unspecified; R94.4 Abnormal results of kidney function studies; S62.521A Displaced fracture of distal phalanx of right thumb, initial encounter for closed fracture; K59.03 Drug induced constipation; T40.2X5A Adverse effect of other opioids, initial encounter; G25.81 Restless legs syndrome; L71.9 Rosacea, unspecified; F10.10 Alcohol abuse, uncomplicated; H61.22 Impacted cerumen, left ear; M85.80 Other specified disorders of bone density and structure, unspecified site; I83.93 Asymptomatic varicose veins of bilateral lower extremities; R73.03 Prediabetes; W18.30XA Fall on same level, unspecified, initial encounter; Z90.49 Acquired absence of other specified parts of digestive tract; Z90.710 Acquired absence of both cervix and uterus; Z95.2 Presence of prosthetic heart valve; Z88.8 Allergy status to other drugs, medicaments and biological substances; Z79.899 Other long term (current) drug therapy; Z79.01 Long term (current) use of anticoagulants; Z86.010 Personal history of colon polyps; Z79.891 Long term (current) use of opiate analgesic; Z79.811 Long term (current) use of aromatase inhibitors
CPT/HCPCS: 0241U; 36415; 72100; 72192; 73130; 80048; 80053; 81001; 85025; 87426; 93005; 93010; 94660; 94762; 96374; 96376; 97110; 97161; 97164; 97166; 97530; A9270; C9803; G0378; J1170; J7030

== ENCOUNTER 2022-07-13 17:34 | Emergency (ER) | payer MEDICARE ==
[~2022-07-13] VITALS: Ht 172.7 cm; Wt 61.2 kg
[2022-07-13] MEDS ORDERED: ELIQUIS5 M2 PO (18:21)
[2022-07-13] MEDS ORDERED: Zestril30 MG PO (18:22)
[2022-07-13] MEDS ORDERED: METO100 PO (18:23)
[2022-07-13] MEDS ORDERED: K-Dur20 MEQ PO (18:24)
[2022-07-13] MEDS ORDERED: TORS10 PO (18:25)
[2022-07-13] MEDS ORDERED: HYDROCODONE-AC1 EA19 PO (20:23)
== END 2022-07-13 18:45 ==
LOC: ER 17:34
DX: S32.599A Other specified fracture of unspecified pubis, initial encounter for closed fracture (principal); W19.XXXA Unspecified fall, initial encounter; R26.89 Other abnormalities of gait and mobility; Z88.6 Allergy status to analgesic agent; Z79.899 Other long term (current) drug therapy; Z79.01 Long term (current) use of anticoagulants; I50.9 Heart failure, unspecified; I48.91 Unspecified atrial fibrillation
CPT/HCPCS: 99285-25